=== PATIENT | male | born 1970 | race Caucasian/White ===

== ENCOUNTER → 2016-07-19 | Day surgery (SDC) | payer MEDICAID ==
[~2016-07-19] MED LIST: Dextrose 5%-Lactated Ringers 1,000 ML IV SCH; Glycopyrrolate 0.2 MG/ML 2 ML SYRINGE IVPUSH ONE; HYDROmorphone 0.5 MG/0.5 ML Syringe IM ONE; Midazolam 1 MG/ML 2 ML SDV ONE; Propofol 200 MG/20 ML SDV ONE; fentaNYL 100 MCG/2 ML SDV ONE
[2016-07-19 09:05] VITALS: BP 93/56
--- NOTE | 2016-07-29 10:39 | OR ---
DATE OF PROCEDURE: 07/19/2016 PREOPERATIVE DIAGNOSES: 1. Heartburn with associated probable gastroesophageal reflux disease. 2. Crampy mid and lower abdominal pain. POSTOPERATIVE DIAGNOSES: 1. Gastroesophageal reflux disease with a polypoid lesion at esophagogastric junction. 2. Mild antral gastritis. 3. Normal colonoscopic examination. OPERATIVE PROCEDURE: 1. Esophagogastroduodenoscopy with:. a. Biopsies of antrum for CLOtest. b. Biopsies of esophagogastric junction for histologic evaluation (13611). c. Polypectomy of lesion at esophagogastric junction (85908). 2. Flexible colonoscopy (28176). ANESTHESIA: IV sedation. INDICATION FOR PROCEDURE: This is a 46-year-old presenting with some epigastric pain and heartburn, whom we started on omeprazole 40 mg daily, roughly a month ago, and is having an improvement in the upper GI symptoms. He has, however, had problems with increasing mid and lower crampy abdominal pain. On questioning the patient and , this appeared to start more or less when he started the omeprazole. The plan is to proceed with upper and lower endoscopy with biopsies and/or polypectomy as indicated. Potential risks of the procedure including bleeding and perforation were discussed, and the patient wishes to proceed. DETAILS OF PROCEDURE: The patient was taken to the operating room and placed in a left lateral decubitus position. IV sedation was administered, after which the upper GI endoscope was passed orally through the length of the esophagus, and into the stomach with retroflexion view of the fundus, thereafter through the pyloric channel and into the proximal duodenum. Findings included normal hypopharynx, larynx, upper esophageal sphincter, and esophageal body. At the EG junction, there is a small hiatal hernia present. The patient had some upward extension of the gastroesophageal junction mucosal lining, suggestive of some possible Felder's esophagus. In addition to this, there is a polypoid lesion directly at the esophagogastric junction as well, this measuring around 4 mm in height. Within the stomach, the proximal stomach was unremarkable, apart from the small hiatal hernia. There was some mild redness in the antrum without erosions or ulcers, and the duodenum to the level of the junction of the 3rd and 4th portions was otherwise unremarkable. At this point, biopsies were obtained from the antrum and sent for CLOtest for H. pylori. Multiple biopsies then obtained from esophagogastric junction, sent for histologic evaluation, and finally the polypoid lesion at the EG junction was encircled at its base with a cautery snare and excised and sent as a separate specimen as well. Good hemostasis was noted at the polypectomy site, and no significant bleeding from the biopsy sites was seen. The gastroscope was withdrawn and the procedure then concluded. Attention was then taken to the colonoscopy. Digital rectal exam was performed and was unremarkable. Colonoscope was passed into the rectum with retroflexion revealing uncomplicated hemorrhoidal columns. The scope was eventually passed to the cecum. The prep was fairly good with there only being a small amount of scattered solid and liquid stool present. To that level, no abnormalities were noted. Specifically, there were no areas of diverticular disease, no areas of colitis, and no polyps or other signs of neoplasia. The scope was then withdrawn, the above findings reconfirmed, and the procedure then concluded. Plan at this point will be to switch the patient from omeprazole to Protonix, as it is possible that the patient's lower and mid abdominal cramping symptoms are related to the omeprazole, but he certainly does need to continue treatment of his gastroesophageal reflux disease. If the CLOtest is positive, he will be contacted and one of the standard anti-H pylori regimens initiated. Otherwise, we will see him back in 10 days to see how he is doing in terms of the lower abdominal pain. If that subsides with changing the PPI, then we would not pursue that further, and otherwise we will base management of the gastroesophageal reflux findings based on histologic evaluation of those specimens. Chris Tatum MD /[id number]
== END ==
LOC: JP.SDS 06:14
PROVIDERS: ATTEND Surgery
DX: K20.9 Esophagitis, unspecified (principal); K29.70 Gastritis, unspecified, without bleeding; K44.9 Diaphragmatic hernia without obstruction or gangrene; K21.9 Gastro-esophageal reflux disease without esophagitis; Z79.899 Other long term (current) drug therapy
CPT/HCPCS: 43239; 43251; 45378; 87081; J2250; J2704; J3010; 88305

== ENCOUNTER 2016-08-15 07:47 | Emergency (ER) | payer MEDICAID ==
[2016-08-15 08:11] VITALS: BP 139/83
--- NOTE | 2016-08-15 08:35 | EDM.PDOC ---
[id number] 4d ALL OVER MUSCLE PAIN Time Seen by Provider: 08/15/16 08:15 Source of Information: Reports: Patient History Limitations: Reports: No limitations - History of Present Illness INITIAL COMMENTS - FREE TEXT/NARRATIVE: 46-year-old male very anxious about his current health who for 2 months has been having intermittent abdominal pain, lower back pain radiating into the left groin and right flank pain. He had a complete workup a month ago for abdominal pain which was negative except for an endoscopy showed Felder's esophagus. He seemed to respond proton pump inhibitors but is having difficulty sleeping at night because of the pain and the anxiety. He is concerned it may be his gallbladder. He has seen a chiropractor without relief. No fevers or chills. He had a 20 pound weight loss over the past several months but admits he is not eating fatty foods anymore. No diarrhea, rashes, chest pain, shortness of breath. Onset: unknown/unsure Duration: Chronic (Several months) Location: Reports: abdomen, back, other (Left groin, testicles) Quality: Reports: Ache, Burning Severity: moderate Worsens with: Reports: Other (Seems worse when laying down especially on his left side) Associated Symptoms: Reports: malaise. Denies: chest pain, cough, fever/chills , headaches, nausea/vomiting, shortness of breath Lower Back Pain Score (Numeric/FACES): 5 - Related Data Allergies Allergy/AdvReac Type Severity Reaction Status Date / Time No Known Allergies Allergy Verified 08/15/16 07:59 Home Meds: Home Meds LORazepam [Ativan] 1 mg PO ASDIRECTED 07/19/16 [History] Pantoprazole Sodium [Protonix] 40 mg PO DAILY 08/15/16 [History] Past Medical History Gastrointestinal History: Reports: GERD Musculoskeletal History: Reports: Arthritis, Back pain, chronic Psychiatric History: Reports: Anxiety - Infectious Disease History Infectious Disease History: Reports: Chicken pox - Past Surgical History GI Surgical History: Reports: Appendectomy, Colonoscopy, EGD Musculoskeletal Surgical History: Reports: None Social & Family History - Tobacco Use Smoking Status *Q: Never Smoker Second Hand Smoke Exposure: No - Caffeine Use Caffeine Use: Reports: None - Alcohol Use Days Per Week of Alcohol Use: 1 Number of Drinks Per Day: 1 Total Drinks Per Week: 1 - Recreational Drug Use Recreational Drug Use: No ED ROS GENERAL - Review of Systems Review Of Systems: See Below Constitutional: Denies: fever, chills, malaise HEENT: Reports: No symptoms Respiratory: Reports: No Symptoms Cardiovascular: Reports: No symptoms GI/Abdominal: Reports: Abdominal pain. Denies: Diarrhea, Nausea, Vomiting : Reports: other (Left groin and testicular pain) Musculoskeletal: Reports: muscle pain (Especially in the back and pelvic area, left side) Neurological: Denies: Headache, Syncope, Weakness Psychiatric: Reports: Anxiety ED EXAM, GENERAL - Physical Exam Exam: See Below Exam Limited By: No limitations General Appearance: alert, anxious Eye Exam: bilateral eye: EOMI, normal inspection (No jaundice) Throat/Mouth: Other (Well-hydrated) Respiratory/Chest: no respiratory distress, lungs clear Cardiovascular: regular rate, rhythm GI/Abdominal: soft, tender (Reacts with tenderness to even light palpation of the upper and lower abdomen) (Male) Exam: No hernia (No obvious hernia was felt that he was so sensitive that he exam it was difficult to palpate the inguinal canal on the left side) Neurological: alert, oriented Psychiatric: anxious Skin Exam: Warm, Dry Course - Vital Signs Last Recorded V/S: Last Vital Signs Temp 94.6 F L 08/15/16 08:14 Pulse 100 08/15/16 08:14 Resp 20 08/15/16 08:14 BP 139/83 08/15/16 08:14 Pulse Ox 96 08/15/16 08:14 - Orders/Labs/Meds Labs: Laboratory Tests 08/15/16 08/15/16 08/15/16 Range/Units 08:39 08:39 08:57 WBC 8.6 (4.5-11.0) K/uL RBC 5.03 (4.30-5.90) M/uL Hgb 15.3 H (12.0-15.0) g/dL Hct 45.0 (40.0-54.0) % MCV 90 (80-98) fL MCH 30 (27-31) pg MCHC 34 (32-36) % Plt Count 279 (150-400) K/uL Neut % (Auto) 81 H (36-66) % Lymph % (Auto) 12 L (24-44) % [place] % (Auto) 6 (2-6) % Eos % (Auto) 1 L (2-4) % Baso % (Auto) 1 (0-1) % ESR 24 H (0-20) mm/hr Sodium 143 (140-148) mmol/L Potassium 3.8 (3.6-5.2) mmol/L Chloride 103 (100-108) mmol/L Carbon Dioxide 29 (21-32) mmol/L Anion Gap 10.8 (5.0-14.0) mmol/L BUN 18 (7-18) mg/dL Creatinine 1.3 (0.8-1.3) mg/dL Est Cr Clr Drug Dosing 83.96 mL/min Estimated GFR (MDRD) 59 L (>60) Glucose 100 (74-106) mg/dL Calcium 9.3 (8.5-10.1) mg/dL Total Bilirubin 0.7 (0.2-1.0) mg/dL AST 18 (15-37) U/L ALT 52 (12-78) U/L Alkaline Phosphatase 69 (46-116) U/L Creatine Kinase 182 (39-308) U/L C-Reactive Protein 0.06 (0.0-0.3) mg/dL Total Protein 8.1 (6.4-8.2) g/dL Albumin 4.3 (3.4-5.0) g/dL Globulin 3.8 H (2.3-3.5) g/dL Albumin/Globulin Ratio 1.1 L (1.2-2.2) Amylase 34 (25-115) U/L Lipase 153 (73-393) U/L Urine Color Yellow Urine Appearance Clear Urine pH 7.0 (4.5-8.0) Ur Specific [place] 1.010 (1.008-1.030) Urine Protein Negative (NEGATIVE) mg/dL Urine Glucose (UA) Normal (NEGATIVE) mg/dL Urine Ketones Negative (NEGATIVE) mg/dL Urine Occult Blood Negative (NEGATIVE) Urine Nitrite Negative (NEGAITVE) Urine Bilirubin Negative (NEGATIVE) Urine Urobilinogen Normal (NORMAL) mg/dL Ur Leukocyte Esterase Negative (NEGATIVE) Urine RBC Not seen (0-5) Urine WBC Not seen (0-5) Ur Epithelial Cells Not seen Amorphous Sediment Not seen Urine Bacteria Not seen Urine Mucus Not seen - Re-Assessments/Exams Free Text/Narrative Re-Assessment/Exam: 08/15/16 08:35 Amylase, lipase, CMP, CRP and sedimentation rate along with a CK and UA were obtained. 08/15/16 09:44 Labs are very reassuring, UA is normal. CRP is normal and sedimentation rate is 24. I discussed sitting the patient up with a surgical consultation or HIDA scan and he elected to try to increase his diet and see how things go and recheck next week if not improving or worsening. He is also going to try an anti-inflammatory at bedtime such as Naprosyn. He will return sooner if worsening. Departure - Departure Time of Disposition: 10:03 Disposition: Home, Self-Care 01 Condition: good Clinical Impression: Myalgia, Left groin pain Abdominal pain Qualifiers: Abdominal location: lower abdomen, unspecified Qualified Code(s): R10.30 - Lower abdominal pain, unspecified Instructions: Abdominal Pain, Adult, [id number] Referrals: Mark Morley MD [Primary Care Provider] - Forms: ED Department Discharge Care Plan Goals: Trying naproxen at bedtime, increase diet and activity as tolerated and recheck next week if not improving. Consider rechecking with surgery to discuss further tests on your gallbladder and rechecking your hernia exam. Return anytime sooner if worsening such as fever, increased pain or vomiting
== END 2016-08-15 10:03 | disposition home or self-care (01) ==
LOC: JP.ED 07:47
DX: M79.1 Myalgia (principal); R10.30 Lower abdominal pain, unspecified; K21.9 Gastro-esophageal reflux disease without esophagitis; M19.90 Unspecified osteoarthritis, unspecified site; F41.9 Anxiety disorder, unspecified; Z90.49 Acquired absence of other specified parts of digestive tract; Z79.899 Other long term (current) drug therapy
CPT/HCPCS: 36415; 80053; 81001; 82150; 82550; 83690; 85025; 85651; 86140; 99284

== ENCOUNTER 2018-01-11 08:16 | Emergency (ER) | payer MEDICAID ==
--- NOTE | 2018-01-11 09:17 | EDM.PDOC ---
ED HPI GENERAL MEDICAL PROBLEM - General Chief Complaint: General Stated Complaint: SOB/DIZZY/SWEATY Time Seen by Provider: 01/11/18 09:05 Source of Information: Reports: Patient, Old Records, RN History Limitations: Reports: No Limitations - History of Present Illness INITIAL COMMENTS - FREE TEXT/NARRATIVE: 47 yo male was seen here and transferred to [facility] for rectal bleeding and found there to have rectal CA that was surgically removed. He got out of the hospital last and starting in the middle of the night last night has had some heart burn and mild SOB. He took TUMS last night and an H2 sheyrl and the heart burn is less, but not the SOB. He has no personal hx of CAD, but his father has coronory dz. No nausea. He's had one BM since discharge that was not hard. He did have a hutchinson catheter when in the hospital. He was also noted to develop hypokalemia during that admission for which he was tx'd. Onset: Today Onset Date: 01/11/18 Onset Time: 02:00 Duration: Hour(s):, Improving Location: Reports: Chest Quality: Reports: Burning Severity: Mild (was worse last night) Improves with: Reports: Medication Worsens with: Reports: Other (dyspnea worse with exertion) Context: Reports: Other (Recent rectal surgery to remove a cancer.) Associated Symptoms: Reports: Shortness of Breath. 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 (see below) (See HPI) Epigastric Pain Score (Numeric/FACES): 5 - Related Data Allergies Allergy/AdvReac Type Severity Reaction Status Date / Time No Known Allergies Allergy Verified 01/11/18 08:42 Home Meds: Home Meds Famotidine [Pepcid] 20 mg PO ACLUNCH PRN 01/11/18 [History] Hydrocodone/Acetaminophen [Hydrocodon-Acetaminophen 5-325] 1 each PO Q4HR [History] Past Medical History Gastrointestinal History: Reports: GERD Musculoskeletal History: Reports: Arthritis, Back Pain, Chronic Psychiatric History: Reports: Anxiety Oncologic (Cancer) History: Reports: Colon Other Oncologic History: colon resection - Infectious Disease History Infectious Disease History: Reports: Chicken Pox - Past Surgical History GI Surgical History: Reports: Appendectomy, Colon, Colonoscopy, EGD Social & Family History - Tobacco Use Smoking Status *Q: Never Smoker - Caffeine Use Caffeine Use: Reports: Coffee Other Caffeine Use: one cup in am - Recreational Drug Use Recreational Drug Use: No ED ROS GENERAL - Review of Systems Review Of Systems: See Below Constitutional: Reports: No Symptoms HEENT: Reports: No Symptoms Respiratory: Reports: Shortness of Breath. Denies: Wheezing, Pleuritic Chest Pain, Cough, Sputum, Hemoptysis Cardiovascular: Reports: Other ("heart burn") Endocrine: Reports: No Symptoms GI/Abdominal: Reports: No Symptoms : Reports: No Symptoms Musculoskeletal: Reports: No Symptoms Skin: Reports: No Symptoms Neurological: Reports: No Symptoms ED EXAM, GENERAL - Physical Exam Exam: See Below Exam Limited By: No Limitations General Appearance: Alert, WD/WN, No Apparent Distress Eye Exam: Bilateral Eye: Other (conjunctival pallor) Ears: Normal External Exam, Normal Canal, Hearing Grossly Normal Ear Exam: Bilateral Ear: Auricle Normal, Canal Normal Nose: Normal Inspection, Normal Mucosa, No Blood Throat/Mouth: Normal Inspection, Normal Lips, Normal Oropharynx, Normal Voice, No Airway Compromise Head: Atraumatic, Normocephalic Neck: Normal Inspection Respiratory/Chest: No Respiratory Distress, Lungs Clear, Normal Breath Sounds, No Accessory Muscle Use Cardiovascular: Regular Rate, Rhythm, No Edema GI/Abdominal: Other (large vertical surgical scar present, no sign of infection. ) Back Exam: Normal Inspection. No: CVA Tenderness (R), CVA Tenderness (L) Extremities: Normal Inspection, Normal Range of Motion, Non-Tender, No Pedal Edema Neurological: Alert, Oriented, CN II-XII Intact, Normal Cognition, No Motor/ Sensory Deficits Psychiatric: Normal Affect, Normal Mood Skin Exam: Warm, Dry, Intact, Normal Color, No Rash Lymphatic: No Adenopathy EKG INTERPRETATION EKG Date: 01/11/18 Time: 09:20 Rhythm: NSR Rate (Beats/Min): 89 Daniel: Normal P-Wave: Present QRS: Normal ST-T: Normal QT: Normal Comparison: NA - No Prior EKG EKG Interpretation Comments: abnormal R wave progression anterior leads. Course - Vital Signs Text/Narrative:: Feeling a lot better after 2.5 liters of IV fluids, 0.5 liters to go. Heartburn is all gone. Last Recorded V/S: Last Vital Signs Temp 36.2 C 01/11/18 08:34 Pulse 82 01/11/18 15:00 Resp 16 01/11/18 15:00 BP 137/84 01/11/18 15:00 Pulse Ox 96 01/11/18 15:00 Orthostatic Blood Pressure [ 147/83 Standing] Orthostatic Blood Pressure [ 126/81 Sitting] Orthostatic Blood Pressure [ 116/79 Supine] - Orders/Labs/Meds Orders: Active Orders 24 hr Category Date Time Status Cardiac Monitoring [RC] .As Directed Care 01/11/18 09:05 Active EKG Documentation Completion [RC] ASDIRECTED Care 01/11/18 09:16 Active Orthostatic Vital Signs [RC] ASDIRECTED Care 01/11/18 09:05 Active Orthostatic Vital Signs [RC] ASDIRECTED Care 01/11/18 13:15 Active Ang Chest [CT] Stat Exams 01/11/18 10:10 Taken UA W/MICROSCOPIC [URIN] Stat Lab 01/11/18 10:40 Ordered Iopamidol [Isovue-370 (76%)] Med 01/11/18 10:30 Active 100 ml IV . DIRECTED Lactated Ringers [Ringers, Lactated] 1,000 ml Med 01/11/18 10:15 Active IV ASDIRECTED Lactated Ringers [Ringers, Lactated] 1,000 ml Med 01/11/18 13:30 Active IV ASDIRECTED Lactated Ringers [Ringers, Lactated] 1,000 ml Med 01/11/18 14:15 Active IV BOLUS Sodium Chloride 0.9% [Saline Flush] Med 01/11/18 10:24 Active 10 ml FLUSH ONETIME PRN EKG 12 Lead [EK] Routine Ther 01/11/18 09:16 Ordered Medication Orders Lactated Ringer's (Ringers, Lactated) 1,000 mls @ 1,000 mls/hr IV ASDIRECTED [facility] Last Admin: 01/11/18 11:27 Dose: 500 mls/hr Lactated Ringer's (Ringers, Lactated) 1,000 mls @ 1,000 mls/hr IV ASDIRECTED [facility] Last Admin: 01/11/18 14:06 Dose: 1,000 mls/hr Admin: 01/11/18 14:04 Dose: 1,000 mls/hr Lactated Ringer's (Ringers, Lactated) 1,000 mls @ 1,000 mls/hr IV BOLUS [facility] [place] Last Admin: 01/11/18 14:50 Dose: 1,000 mls/hr Iopamidol (Isovue-370 (76%)) 100 ml IV . DIRECTED [facility] Last Admin: 01/11/18 11:22 Dose: 100 ml Sodium Chloride (Saline Flush) 10 ml FLUSH ONETIME PRN PRN Reason: PER RADIOLOGY PROTOCOL Last Admin: 01/11/18 11:23 Dose: 10 ml Labs: Laboratory Tests 01/11/18 01/11/18 01/11/18 Range/Units 09:15 09:15 09:15 WBC 14.4 H (4.5-11.0) K/uL RBC 4.30 (4.30-5.90) M/uL Hgb 12.1 D (12.0-15.0) g/dL Hct 37.5 L (40.0-54.0) % MCV 87 (80-98) fL MCH 28 (27-31) pg MCHC 32 (32-36) % Plt Count 639 H (150-400) K/uL D-Dimer, Quantitative 3180 H (0.0-400.0) ng/mL Sodium 135 L (140-148) mmol/L Potassium 4.2 (3.6-5.2) mmol/L Chloride 99 L (100-108) mmol/L Carbon Dioxide 26 (21-32) mmol/L Anion Gap 14.2 H (5.0-14.0) mmol/L BUN 18 (7-18) mg/dL Creatinine 1.2 (0.8-1.3) mg/dL Est Cr Clr Drug Dosing 89.98 mL/min Estimated GFR (MDRD) > 60 (>60) Glucose 147 H (74-106) mg/dL Calcium 9.2 (8.5-10.1) mg/dL Troponin I < 0.017 (0.000-0.056) ng/mL C-Reactive Protein (0.0-0.3) mg/dL Urine Color Urine Appearance Urine pH (4.5-8.0) Ur Specific [place] (1.008-1.030) Urine Protein (NEGATIVE) mg/dL Urine Glucose (UA) (NEGATIVE) mg/dL Urine Ketones (NEGATIVE) mg/dL Urine Occult Blood (NEGATIVE) Urine Nitrite (NEGAITVE) Urine Bilirubin (NEGATIVE) Urine Urobilinogen (NORMAL) mg/dL Ur Leukocyte Esterase (NEGATIVE) Urine RBC (0-5) Urine WBC (0-5) Ur Epithelial Cells Amorphous Sediment Urine Bacteria Urine Mucus 01/11/18 01/11/18 01/11/18 Range/Units 09:49 10:40 15:14 WBC (4.5-11.0) K/uL RBC (4.30-5.90) M/uL Hgb 11.1 L (12.0-15.0) g/dL Hct (40.0-54.0) % MCV (80-98) fL MCH (27-31) pg MCHC (32-36) % Plt Count (150-400) K/uL D-Dimer, Quantitative (0.0-400.0) ng/mL Sodium (140-148) mmol/L Potassium (3.6-5.2) mmol/L Chloride (100-108) mmol/L Carbon Dioxide (21-32) mmol/L Anion Gap (5.0-14.0) mmol/L BUN (7-18) mg/dL Creatinine (0.8-1.3) mg/dL Est Cr Clr Drug Dosing mL/min Estimated GFR (MDRD) (>60) Glucose (74-106) mg/dL Calcium (8.5-10.1) mg/dL Troponin I (0.000-0.056) ng/mL C-Reactive Protein 1.17 H (0.0-0.3) mg/dL Urine Color Yellow Urine Appearance Clear Urine pH 6.0 (4.5-8.0) Ur Specific [place] 1.010 (1.008-1.030) Urine Protein Negative (NEGATIVE) mg/dL Urine Glucose (UA) Normal (NEGATIVE) mg/dL Urine Ketones Negative (NEGATIVE) mg/dL Urine Occult Blood Negative (NEGATIVE) Urine Nitrite Negative (NEGAITVE) Urine Bilirubin Negative (NEGATIVE) Urine Urobilinogen Normal (NORMAL) mg/dL Ur Leukocyte Esterase Negative (NEGATIVE) Urine RBC 0-5 (0-5) Urine WBC Not seen (0-5) Ur Epithelial Cells Not seen Amorphous Sediment Not seen Urine Bacteria Not seen Urine Mucus Not seen Meds: Medications Generic Name Dose Route Start Last Admin Trade Name Freq PRN Reason Stop Dose Admin Lactated Ringer's 1,000 mls @ 1,000 mls/hr 01/11/18 10:15 01/11/18 11:27 Ringers, Lactated IV 500 mls/hr ASDIRECTED LEONA Administration Lactated Ringer's 1,000 mls @ 1,000 mls/hr 01/11/18 13:30 01/11/18 14:06 Ringers, Lactated IV 1,000 mls/hr ASDIRECTED LEONA Administration Lactated Ringer's 1,000 mls @ 1,000 mls/hr 01/11/18 14:15 01/11/18 14:50 Ringers, Lactated IV 1,000 mls/hr BOLUS LEONA Administration Iopamidol 100 ml 01/11/18 10:30 01/11/18 11:22 Isovue-370 (76%) IV 100 ml . DIRECTED LEONA Administration Sodium Chloride 10 ml 01/11/18 10:24 01/11/18 11:23 Saline Flush FLUSH 10 ml ONETIME PRN Administration PER RADIOLOGY PROTOCOL Discontinued Medications Generic Name Dose Route Start Last Admin Trade Name Freq PRN Reason Stop Dose Admin Sodium Chloride 100 mls @ 3 mls/sec 01/11/18 10:24 01/11/18 11:23 Normal Saline IV 01/11/18 10:25 3 mls/sec ONETIME ONE Administration Metoclopramide HCl 10 mg 01/11/18 13:16 01/11/18 13:35 Reglan IVPUSH 01/11/18 13:17 10 mg ONETIME ONE Administration - Radiology Interpretation Free Text/Narrative:: No PE on CT angio of chest. CT Results Date: 01/11/18 CT Results Time: 12:00 Departure - Departure Time of Disposition: 15:55 Disposition: Home, Self-Care 01 Condition: Fair Clinical Impression: Ileus, Mild dehydration - Discharge Information *PRESCRIPTION DRUG MONITORING PROGRAM REVIEWED*: Not Applicable *COPY OF PRESCRIPTION DRUG MONITORING REPORT IN PATIENT VIKAS: Not Applicable Instructions: Ileus Referrals: Mark Morley MD [Primary Care Provider] - Forms: ED Department Discharge Additional Instructions: Clear liquid diet today, small amounts at a time. Walk around to get your bowels activated. Advance your diet slowly as tolerated. Recheck as needed. - My Orders Last 24 Hours: My Active Orders 01/11/18 09:05 Cardiac Monitoring [RC] .As Directed Orthostatic Vital Signs [RC] ASDIRECTED 01/11/18 09:16 EKG Documentation Completion [RC] ASDIRECTED EKG 12 Lead [EK] Routine 01/11/18 10:10 Ang Chest [CT] Stat 01/11/18 10:15 Lactated Ringers [Ringers, Lactated] 1,000 ml IV ASDIRECTED 01/11/18 10:24 Sodium Chloride 0.9% [Saline Flush] 10 ml FLUSH ONETIME PRN 01/11/18 10:30 Iopamidol [Isovue-370 (76%)] 100 ml IV . DIRECTED 01/11/18 10:40 UA W/MICROSCOPIC [URIN] Stat 01/11/18 13:15 Orthostatic Vital Signs [RC] ASDIRECTED 01/11/18 13:30 Lactated Ringers [Ringers, Lactated] 1,000 ml IV ASDIRECTED 01/11/18 14:15 Lactated Ringers [Ringers, Lactated] 1,000 ml IV BOLUS - Assessment/Plan Last 24 Hours: My Active Orders 01/11/18 09:05 Cardiac Monitoring [RC] .As Directed Orthostatic Vital Signs [RC] ASDIRECTED 01/11/18 09:16 EKG Documentation Completion [RC] ASDIRECTED EKG 12 Lead [EK] Routine 01/11/18 10:10 Ang Chest [CT] Stat 01/11/18 10:15 Lactated Ringers [Ringers, Lactated] 1,000 ml IV ASDIRECTED 01/11/18 10:24 Sodium Chloride 0.9% [Saline Flush] 10 ml FLUSH ONETIME PRN 01/11/18 10:30 Iopamidol [Isovue-370 (76%)] 100 ml IV . DIRECTED 01/11/18 10:40 UA W/MICROSCOPIC [URIN] Stat 01/11/18 13:15 Orthostatic Vital Signs [RC] ASDIRECTED 01/11/18 13:30 Lactated Ringers [Ringers, Lactated] 1,000 ml IV ASDIRECTED 01/11/18 14:15 Lactated Ringers [Ringers, Lactated] 1,000 ml IV BOLUS
[2018-01-11] MEDS ORDERED: Lactated Ringers 1,000 ML IV SCH ×2 (10:15→14:15)
[2018-01-11] MEDS ORDERED: Sodium Chloride 0.9% 10 ML Syringe FLUSH PRN (10:24)
[2018-01-11] MEDS ORDERED: Sodium Chloride 0.9% 100 ML IV ONE (10:24)
[2018-01-11] MEDS ORDERED: Iopamidol 755 Mg/ML 100 ML Bottle IV SCH (10:30)
[2018-01-11] MEDS ORDERED: Metoclopramide 10 MG/2 ML SDV IVPUSH ONE (13:16)
[2018-01-11] MEDS: Lactated Ringers 1,000 ML IV SCH ×2 (14:04→14:06)
[2018-01-11 15:34] VITALS: BP 144/83
== END 2018-01-11 15:55 | disposition home or self-care (01) ==
LOC: JP.ED 08:16
DX: K56.7 Ileus, unspecified (principal); E86.0 Dehydration
CPT/HCPCS: 36415; 71275; 80048; 81001; 84484; 85018; 85027; 85379; 86140; 93005; 96361; 96374; 99285; J2765; J7030; J7050; J7120; Q9967

== ENCOUNTER 2018-02-25 22:35 | Emergency (ER) | payer MEDICAID ==
[2018-02-25] MEDS ORDERED: Lactated Ringers 1,000 ML IV SCH (23:45)
--- NOTE | 2018-02-25 23:47 | EDM.PDOC ---
ED HPI GENERAL MEDICAL PROBLEM - General Chief Complaint: Fever Stated Complaint: FEVER Time Seen by Provider: 02/25/18 23:28 Source of Information: Reports: Patient, Family, RN Notes Reviewed History Limitations: Reports: No Limitations - History of Present Illness INITIAL COMMENTS - FREE TEXT/NARRATIVE: 47-year-old gentleman presents to the emergency department today with complaint of fever he has a known history of stage III colon cancer status post resection currently on chemotherapy, last chemotherapy dose was today fever was up to 100.4, called discussed case with oncology recommend report emergency department for further evaluation. He has no other symptoms - Related Data Allergies Allergy/AdvReac Type Severity Reaction Status Date / Time No Known Allergies Allergy Verified 02/25/18 23:20 Home Meds: Home Meds Ciprofloxacin HCl [Cipro] 500 mg PO ASDIRECTED PRN 02/25/18 [History] Diphenhyd/Lidocaine/Nystatin [First-Bxn Mouthwash] 237 ml MM ASDIRECTED [History] Ondansetron [Ondansetron Odt] 4 mg PO ASDIRECTED 02/25/18 [History] Prochlorperazine [Compazine] 10 mg PO Q6H PRN 02/25/18 [History] Past Medical History Gastrointestinal History: Reports: GERD Musculoskeletal History: Reports: Arthritis, Back Pain, Chronic Psychiatric History: Reports: Anxiety Oncologic (Cancer) History: Reports: Colon Other Oncologic History: colon resection January 02 2018 - Infectious Disease History Infectious Disease History: Reports: Chicken Pox - Past Surgical History GI Surgical History: Reports: Appendectomy, Colon, Colonoscopy, EGD Social & Family History - Tobacco Use Smoking Status *Q: Never Smoker - Caffeine Use Caffeine Use: Reports: Coffee Other Caffeine Use: one cup in am - Recreational Drug Use Recreational Drug Use: No ED ROS GENERAL - Review of Systems Review Of Systems: See Below Constitutional: Reports: Fever HEENT: Reports: No Symptoms Respiratory: Reports: No Symptoms Cardiovascular: Reports: No Symptoms GI/Abdominal: Reports: No Symptoms : Reports: No Symptoms Musculoskeletal: Reports: No Symptoms Skin: Reports: No Symptoms ED EXAM, GENERAL - Physical Exam Exam: See Below Free Text/Narrative:: General: Male, not in any distress, alert and oriented x3 HEENT: head is atraumatic normocephalic, eyes pupils equal round reactive to light, sclera clear no conjunctivitis appreciated. Ears tympanic membranes clear and garrett landmarks and light reflex are present bilaterally canals are clear. Nose no septal deviation, nares are clear, no blood present. Mouth mucosa is moist and pink no erythema or exudate noted in soft palate, tongue is midline uvula is midline, dentition is intact. Neck: Supple no thyromegaly no tracheal deviation. Nodes: Cervical nodes subclavicular nodes nontender no palpable lymphadenopathy noted. Lungs: clear to auscultation bilaterally with symmetrical respirations, no adventitious noise appreciated. CV: Regular rate and rhythm S1 and S2 appreciated no murmurs rubs or gallops noted. Abdomen: Soft, nontender, no palpable masses or organomegaly appreciated, no distention no guarding bowel sounds are present, midline laparotomy scar clean dry and intact. Neuro: Cranial nerves II through XII grossly intact Skin: Warm and dry, intact Extremities: No lower extremity edema appreciated, Course - Vital Signs Last Recorded V/S: Last Vital Signs Temp 99.1 F 02/26/18 00:13 Pulse 102 H 02/26/18 00:13 Resp 16 02/26/18 00:13 BP 117/74 02/26/18 00:13 Pulse Ox 96 02/26/18 00:13 - Orders/Labs/Meds Orders: Active Orders 24 hr Category Date Time Status Vital Signs [RC] Q1H Care 02/25/18 23:36 Active Chest 2V [CR] Urgent Exams 02/26/18 00:05 Taken CULTURE BLOOD [BC] Urgent Lab 02/25/18 23:36 Ordered CULTURE BLOOD [BC] Urgent Lab 02/25/18 23:36 Ordered Ciprofloxacin [Ciprofloxacin HCl] Med 02/26/18 02:30 Once 500 mg PO ONETIME ONE Lactated Ringers [Ringers, Lactated] 1,000 ml Med 02/25/18 23:45 Active IV ASDIRECTED Blood Culture x2 Reflex Set [OM.PC] Urgent Oth 02/25/18 23:36 Ordered Medication Orders Ciprofloxacin (Ciprofloxacin Hcl) 500 mg PO ONETIME ONE Stop: 02/26/18 02:31 Lactated Ringer's (Ringers, Lactated) 1,000 mls @ 125 mls/hr IV ASDIRECTED LEONA Last Admin: 02/26/18 00:10 Dose: 125 mls/hr Labs: Laboratory Tests 02/25/18 02/25/1818 Range/Units 23:36 23:36 23:36 WBC 8.1 (4.5-11.0) K/uL RBC 4.39 (4.30-5.90) M/uL Hgb 12.5 (12.0-15.0) g/dL Hct 37.5 L (40.0-54.0) % MCV 85 (80-98) fL MCH 29 (27-31) pg MCHC 33 (32-36) % Plt Count 192 (150-400) K/uL Neut % (Auto) 91 H (36-66) % Lymph % (Auto) 2 L (24-44) % [place] % (Auto) 6 (2-6) % Eos % (Auto) 1 L (2-4) % Baso % (Auto) 0 (0-1) % Sodium 137 L (140-148) mmol/L Potassium 4.1 (3.6-5.2) mmol/L Chloride 100 (100-108) mmol/L Carbon Dioxide 26 (21-32) mmol/L Anion Gap 15.1 H (5.0-14.0) mmol/L BUN 15 (7-18) mg/dL Creatinine 1.3 (0.8-1.3) mg/dL Est Cr Clr Drug Dosing 83.06 mL/min Estimated GFR (MDRD) 59 L (>60) Glucose 122 H (74-106) mg/dL Lactic Acid 1.8 (0.4-2.0) mmol/L Calcium 9.0 (8.5-10.1) mg/dL Total Bilirubin 0.5 D (0.2-1.0) mg/dL AST 16 (15-37) U/L ALT 26 (12-78) U/L Alkaline Phosphatase 73 (46-116) U/L C-Reactive Protein 0.45 H (0.0-0.3) mg/dL Total Protein 7.3 (6.4-8.2) g/dL Albumin 3.6 (3.4-5.0) g/dL Globulin 3.7 H (2.3-3.5) g/dL Albumin/Globulin Ratio 1.0 L (1.2-2.2) Urine Color Urine Appearance Urine pH (4.5-8.0) Ur Specific [place] (1.008-1.030) Urine Protein (NEGATIVE) mg/dL Urine Glucose (UA) (NEGATIVE) mg/dL Urine Ketones (NEGATIVE) mg/dL Urine Occult Blood (NEGATIVE) Urine Nitrite (NEGAITVE) Urine Bilirubin (NEGATIVE) Urine Urobilinogen (NORMAL) mg/dL Ur Leukocyte Esterase (NEGATIVE) Urine RBC (0-5) Urine WBC (0-5) Ur Epithelial Cells Amorphous Sediment Urine Bacteria Urine Mucus 02/26/18 Range/Units 01:21 WBC (4.5-11.0) K/uL RBC (4.30-5.90) M/uL Hgb (12.0-15.0) g/dL Hct (40.0-54.0) % MCV (80-98) fL MCH (27-31) pg MCHC (32-36) % Plt Count (150-400) K/uL Neut % (Auto) (36-66) % Lymph % (Auto) (24-44) % [place] % (Auto) (2-6) % Eos % (Auto) (2-4) % Baso % (Auto) (0-1) % Sodium (140-148) mmol/L Potassium (3.6-5.2) mmol/L Chloride (100-108) mmol/L Carbon Dioxide (21-32) mmol/L Anion Gap (5.0-14.0) mmol/L BUN (7-18) mg/dL Creatinine (0.8-1.3) mg/dL Est Cr Clr Drug Dosing mL/min Estimated GFR (MDRD) (>60) Glucose (74-106) mg/dL Lactic Acid (0.4-2.0) mmol/L Calcium (8.5-10.1) mg/dL Total Bilirubin (0.2-1.0) mg/dL AST (15-37) U/L ALT (12-78) U/L Alkaline Phosphatase (46-116) U/L C-Reactive Protein (0.0-0.3) mg/dL Total Protein (6.4-8.2) g/dL Albumin (3.4-5.0) g/dL Globulin (2.3-3.5) g/dL Albumin/Globulin Ratio (1.2-2.2) Urine Color [place] Urine Appearance Clear Urine pH 6.0 (4.5-8.0) Ur Specific [place] 1.015 (1.008-1.030) Urine Protein Trace (NEGATIVE) mg/dL Urine Glucose (UA) Normal (NEGATIVE) mg/dL Urine Ketones Negative (NEGATIVE) mg/dL Urine Occult Blood Negative (NEGATIVE) Urine Nitrite Negative (NEGAITVE) Urine Bilirubin Negative (NEGATIVE) Urine Urobilinogen Normal (NORMAL) mg/dL Ur Leukocyte Esterase Negative (NEGATIVE) Urine RBC 0-5 (0-5) Urine WBC 0-5 (0-5) Ur Epithelial Cells Not seen Amorphous Sediment Few Urine Bacteria Not seen Urine Mucus Not seen Meds: Medications Generic Name Dose Route Start Last Admin Trade Name Freq PRN Reason Stop Dose Admin Ciprofloxacin 500 mg 02/26/18 02:30 Ciprofloxacin Hcl PO 02/26/18 02:31 ONETIME ONE Lactated Ringer's 1,000 mls @ 125 mls/hr 02/25/18 23:45 02/26/18 00:10 Ringers, Lactated IV 125 mls/hr ASDIRECTED LEONA Administration Departure - Departure Time of Disposition: 02:32 Disposition: Home, Self-Care 01 Condition: Fair Clinical Impression: Fever Qualifiers: Fever type: unspecified Qualified Code(s): R50.9 - Fever, unspecified - Discharge Information Referrals: Mark Morley MD [Primary Care Provider] - Forms: ED Department Discharge Additional Instructions: Start ciprofloxacin 500 mg by mouth twice a day please contact your oncologist in the morning for further evaluation - My Orders Last 24 Hours: My Active Orders 02/25/18 23:36 Vital Signs [RC] Q1H CULTURE BLOOD [BC] Urgent CULTURE BLOOD [BC] Urgent Blood Culture x2 Reflex Set [OM.PC] Urgent 02/25/18 23:45 Lactated Ringers [Ringers, Lactated] 1,000 ml IV ASDIRECTED 02/26/18 00:05 Chest 2V [CR] Urgent 02/26/18 02:30 Ciprofloxacin [Ciprofloxacin HCl] 500 mg PO ONETIME ONE - Assessment/Plan Last 24 Hours: My Active Orders 02/25/18 23:36 Vital Signs [RC] Q1H CULTURE BLOOD [BC] Urgent CULTURE BLOOD [BC] Urgent Blood Culture x2 Reflex Set [OM.PC] Urgent 02/25/18 23:45 Lactated Ringers [Ringers, Lactated] 1,000 ml IV ASDIRECTED 02/26/18 00:05 Chest 2V [CR] Urgent 02/26/18 02:30 Ciprofloxacin [Ciprofloxacin HCl] 500 mg PO ONETIME ONE Plan: Assessment Acuity = acute Site and laterality = fever complicated in a patient on chemotherapy for colon cancer stage III Etiology = unclear etiology Manifestations = none Location of injury = Home Lab values =CBC, CMP, lactic acid, CRP all unremarkable urinalysis does not reveal a source nor does chest x-ray official read radiology is pending Plan Attempted to contact oncology on-call unfortunately unavailable at this time felt he was low risk elected to start ciprofloxacin 500 mg by mouth twice a day which he has a prescription for they will contact oncology in the morning for further evaluation This note was dictated using [employer] voice recognition software please call with any questions on syntax or grammar.
[2018-02-26] MEDS ORDERED: Ciprofloxacin 500 MG Tab PO ONE (02:30)
[2018-02-26 02:44] VITALS: BP 114/75
--- NOTE | 2018-02-26 09:31 | CR ---
CHEST: 2 view CLINICAL HISTORY:Fever COMPARISON:07/17/2016 FINDINGS: There is less than optimal inspiration. There is a left jugular catheter. Tip is in the br achycephalic vein. Heart size and pulmonary vascularity are normal. There are atherosclerotic changes in the aorta. No infiltrates are seen. There is some gaseous bowel distention. Impression: Limited study Lung ortega are clear. Left jugular catheter in good position Bowel distention
== END 2018-02-26 02:42 | disposition home or self-care (01) ==
LOC: JP.ED 22:35
DX: R50.9 Fever, unspecified (principal); C18.9 Malignant neoplasm of colon, unspecified; Z79.899 Other long term (current) drug therapy
CPT/HCPCS: 36415; 71046; 80053; 81001; 83605; 85025; 86140; 96360; 96361; 99284; A9270; J7120

== ENCOUNTER 2020-04-03 17:46 | Emergency (ER) | payer MEDICAID ==
[2020-04-03 18:03] VITALS: BP 175/100; PULSE 103
[2020-04-03] MEDS ORDERED: Lidocaine 1% 20 ML MDV INJECT ONE (20:05)
[2020-04-03] MEDS ORDERED: Bacitracin Oint 1 GM U/D Packet TOP ONE (20:06)
[2020-04-03] MEDS ORDERED: ceFAZolin 1 GM Vial IM ONE (20:53)
[2020-04-03] MEDS ORDERED: Diphtheria,Pertussis(Acell),Tetanus Vaccine 0.5 ML Syringe IM ONE (20:54)
--- NOTE | 2020-04-03 21:06 | EDM.PDOC ---
ED HPI GENERAL MEDICAL PROBLEM - General Chief Complaint: Laceration Stated Complaint: CUT LEFT PINKY Time Seen by Provider: 04/03/20 20:59 Source of Information: Reports: Patient History Limitations: Reports: No Limitations - History of Present Illness INITIAL COMMENTS - FREE TEXT/NARRATIVE: pt arrived with a 4 inch laceration on the vance aspect of his small finger. He was coming out of a deer stand and he slipped and caught his finger on a ladder. He has sensation at the tip and he has motion of the finger. He is not current with his tetanus. Onset: Today, Sudden Duration: Hour(s): Location: Reports: Upper Extremity, Left Associated Symptoms: Reports: No Other Symptoms Left Finger-Little Pain Score (Numeric/FACES): 5 - Related Data Allergies Allergy/AdvReac Type Severity Reaction Status Date / Time No Known Allergies Allergy Verified 02/25/18 23:20 Home Meds: Home Meds Ondansetron [Ondansetron Odt] 4 mg PO ASDIRECTED 02/25/18 [History] Prochlorperazine [Compazine] 10 mg PO Q6H PRN 02/25/18 [History] Past Medical History Respiratory History: Reports: Other (See Below) Other Respiratory History: cancer mets from colon Gastrointestinal History: Reports: GERD Musculoskeletal History: Reports: Arthritis, Back Pain, Chronic Psychiatric History: Reports: Anxiety Oncologic (Cancer) History: Reports: Colon Other Oncologic History: colon resection January 02 2018 - Infectious Disease History Infectious Disease History: Reports: Chicken Pox - Past Surgical History GI Surgical History: Reports: Appendectomy, Colon, Colonoscopy, EGD Social & Family History - Tobacco Use Tobacco Use Status *Q: Never Tobacco User - Caffeine Use Caffeine Use: Reports: Coffee Other Caffeine Use: one cup in am - Recreational Drug Use Recreational Drug Use: No ED ROS GENERAL - Review of Systems Review Of Systems: See Below Constitutional: Reports: No Symptoms HEENT: Reports: No Symptoms Respiratory: Reports: No Symptoms Cardiovascular: Reports: No Symptoms Endocrine: Reports: No Symptoms GI/Abdominal: Reports: No Symptoms : Reports: No Symptoms Musculoskeletal: Reports: Other (laceration on the vance aspect of the small finger about 4 inches in length. ) ED EXAM, SKIN/RASH Exam: See Below Text/Narrative:: pt was coming out odf a deer stand ladder and caught the vance aspect of the small finger on the ladder. He has a 4 inch laceration on the vance aspect. Exam Limited By: No Limitations General Appearance: Alert, Anxious, Moderate Distress Ears: Normal TMs Nose: Normal Inspection Throat/Mouth: Normal Inspection Head: Atraumatic Neck: Normal Inspection Respiratory/Chest: No Respiratory Distress Cardiovascular: Regular Rate, Rhythm GI/Abdominal: Soft, Non-Tender (Male) Exam: Deferred Rectal (Males) Exam: Deferred Extremities: Other (pt has a flap type laceration on the vance aspect of the left small finger. He has normal sensation at he tip of the finger and he has a small jamie in the tendon. He is able to flex the finger with no difficulty. It appears only the superficial fibers were cut on the tendon. This does not affect the motion. ) Neurological: Alert, Oriented, Normal Cognition Course - Vital Signs Last Recorded V/S: Last Vital Signs Temp 35.2 C L 04/03/20 17:59 Pulse 103 H 04/03/20 17:59 Resp 16 04/03/20 17:59 BP 175/100 H 04/03/20 17:59 Pulse Ox 97 04/03/20 17:59 - Orders/Labs/Meds Orders: Active Orders 24 hr Category Date Time Status Vaccines to be Administered [RC] PER UNIT ROUTINE Care 04/03/20 20:54 Active Meds: Medications Discontinued Medications Generic Name Dose Route Start Last Admin Trade Name Marissa PRN Reason Stop Dose Admin Bacitracin 1 dose 04/03/20 20:06 04/03/20 20:12 Bacitracin Oint 1 Gm TOP 04/03/20 20:07 1 dose ONETIME ONE Administration Cefazolin Sodium 1 gm 04/03/20 20:53 Ancef IM 04/03/20 20:54 ONETIME ONE Diphtheria/Tetanus/Acell Pertussis 0.5 ml 04/03/20 20:54 Boostrix IM 04/03/20 20:55 .ONCE ONE Lidocaine HCl 20 ml 04/03/20 20:05 04/03/20 20:12 Xylocaine 1% INJECT 04/03/20 20:06 20 ml ONETIME ONE Administration - Re-Assessments/Exams Free Text/Narrative Re-Assessment/Exam: 04/03/20 21:06 The area was cleansed well and infiltrated with lidocaine. The tendon was inspected and only a few fibers were lacerated. He was given a tdap and 1 gm of ancef im. The wound was brought together with 5-0 chromic and 5-0 prolene. The flap did tack down nicely but some of the edges did look traumatized. The wound was dressed with bacatracin and the finger was splinted. Departure - Departure Time of Disposition: 21:09 Disposition: Home, Self-Care 01 Condition: Fair Clinical Impression: Laceration - Discharge Information Referrals: Mark Morley MD [Primary Care Provider] - Care Plan Goals: leave present dressing on until tomorrow afternoon. Pt shpould see Dr Davidson tomorrow to get his opinion on the tendon issue, keflex 500mg tid for 7 days, norco 5/325 q6h prn foe pain. Sepsis Event Note (ED) - Evaluation Sepsis Screening Result: No Definite Risk - Focused Exam Vital Signs: Vital Signs Temp Pulse Resp BP Pulse Ox 04/03/20 17:59 35.2 C L 103 H 16 175/100 H 97 - My Orders Last 24 Hours: My Active Orders 04/03/20 20:54 Vaccines to be Administered [RC] PER UNIT ROUTINE - Assessment/Plan Last 24 Hours: My Active Orders 04/03/20 20:54 Vaccines to be Administered [RC] PER UNIT ROUTINE
== END 2020-04-03 21:43 | disposition home or self-care (01) ==
LOC: JP.ED 17:46
DX: S61.217A Laceration without foreign body of left little finger without damage to nail, initial encounter (principal); Z23 Encounter for immunization; W23.0XXA Caught, crushed, jammed, or pinched between moving objects, initial encounter
CPT/HCPCS: 12004; 12044; 90471; 90715; 96372; 99282; J0690; J2001

== ENCOUNTER 2020-04-15 09:48 | Emergency (ER) | payer MEDICAID ==
--- NOTE | 2020-04-15 10:41 | EDM.PDOC ---
ED HPI GENERAL MEDICAL PROBLEM - General Chief Complaint: Fever Stated Complaint: cough, low grade fever Time Seen by Provider: 04/15/20 10:25 Source of Information: Reports: Patient, RN History Limitations: Reports: Other (incomplete records) - History of Present Illness INITIAL COMMENTS - FREE TEXT/NARRATIVE: 50 yo male had a lobectomy for CA this past Friday at [facility] in [place]. He was discharged on from there and starting Friday developed a cough with some productivity and a low grade fever intermittently to around 100F. He is getting less and less SOB with each passing day. He is doing respiratory exercises at home as directed. Here now with his after they called [place] this morning and were told to come to the ER. Onset: Gradual Onset Date: 04/14/20 Duration: Day(s): (1), Waxing/Waning Location: Reports: Generalized Quality: Denies: Other (low grade fever is the concern) Severity: Mild Improves with: Reports: Medication Worsens with: Reports: Other (? time) Context: Reports: Other (See HPI) Associated Symptoms: Reports: Fever/Chills (low grade), Shortness of Breath (getting better) Treatments [employer]PER[employer]OR: Reports: Breathing Treatments, Other (see below) (percocet for pain relief after his surgery) Right Posterior Chest Pain Score (Numeric/FACES): 4 - Related Data Allergies Allergy/AdvReac Type Severity Reaction Status Date / Time No Known Allergies Allergy Verified 04/15/20 10:33 Home Meds: Home Meds Ondansetron [Ondansetron Odt] 4 mg PO ASDIRECTED 02/25/18 [History] Prochlorperazine [Compazine] 10 mg PO Q6H PRN 02/25/18 [History] Doxycycline [Vibra-Tabs] 100 mg PO Q12HR #14 tab 04/15/20 [Rx] Metoprolol Succinate 25 mg PO DAILY 04/15/20 [History] oxyCODONE 5 mg PO Q6H PRN 04/15/20 [History] Past Medical History Respiratory History: Reports: Other (See Below) Other Respiratory History: cancer mets from colon Gastrointestinal History: Reports: GERD Musculoskeletal History: Reports: Arthritis, Back Pain, Chronic, Other (See Below) Other Musculoskeletal History: left 5tht digit laceration 04/03/20 Psychiatric History: Reports: Anxiety Oncologic (Cancer) History: Reports: Colon Other Oncologic History: colon resection January 02 2018 - Infectious Disease History Infectious Disease History: Reports: Chicken Pox - Past Surgical History GI Surgical History: Reports: Appendectomy, Colon, Colonoscopy, EGD Musculoskeletal Surgical History: Reports: None Social & Family History - Caffeine Use Caffeine Use: Reports: Coffee Other Caffeine Use: one cup in am ED ROS GENERAL - Review of Systems Review Of Systems: See Below Constitutional: Reports: Fever (low grade), Malaise HEENT: Reports: No Symptoms Respiratory: Reports: Shortness of Breath (getting better), Cough, Sputum (green at times), Hemoptysis (post-op, now resolved) Cardiovascular: Reports: No Symptoms Endocrine: Reports: No Symptoms GI/Abdominal: Reports: No Symptoms : Reports: Other (urine is dark) Musculoskeletal: Reports: No Symptoms Skin: Reports: No Symptoms Neurological: Reports: No Symptoms ED EXAM, GENERAL - Physical Exam Exam: See Below Exam Limited By: No Limitations General Appearance: Alert, WD/WN, No Apparent Distress Eye Exam: Bilateral Eye: Normal Inspection Ears: Normal External Exam, Normal Canal, Hearing Grossly Normal, Normal TMs Ear Exam: Bilateral Ear: Auricle Normal, Canal Normal, TM normal Nose: Normal Inspection, No Blood Throat/Mouth: Normal Inspection, Normal Lips, Normal Oropharynx, Normal Voice, No Airway Compromise Head: Atraumatic, Normocephalic Neck: Normal Inspection Respiratory/Chest: No Respiratory Distress, No Accessory Muscle Use, Rhonchi (R base). No: Wheezing Cardiovascular: Regular Rate, Rhythm, No Edema Back Exam: Other (surgical scar R posterior chest) Extremities: Normal Inspection, Normal Range of Motion, Non-Tender, No Pedal Edema Neurological: Alert, Oriented, CN II-XII Intact, Normal Cognition, No Motor/Sensory Deficits Psychiatric: Normal Affect, Normal Mood Skin Exam: Warm, Dry, Intact, Normal Color, No Rash Course - Vital Signs Last Recorded V/S: Last Vital Signs Temp 37.0 C 04/15/20 11:25 Pulse 93 04/15/20 11:25 Resp 16 04/15/20 11:25 BP 133/75 04/15/20 11:25 Pulse Ox 95 04/15/20 11:25 - Orders/Labs/Meds Labs: Laboratory Tests 04/15/20 04/15/2020 Range/Units 10:38 10:38 10:38 WBC 7.4 (4.5-11.0) K/uL RBC 4.72 (4.30-5.90) M/uL Hgb 14.2 (12.0-15.0) g/dL Hct 43.8 (40.0-54.0) % MCV 93 (80-98) fL MCH 30 (27-31) pg MCHC 32 (32-36) % Plt Count 231 (150-400) K/uL Sodium 132 L (140-148) mmol/L Potassium 3.2 L (3.6-5.2) mmol/L Chloride 93 L (100-108) mmol/L Carbon Dioxide 28 (21-32) mmol/L Anion Gap 14.2 H (5.0-14.0) mmol/L BUN 15 (7-18) mg/dL Creatinine 1.3 (0.8-1.3) mg/dL Est Cr Clr Drug Dosing 82.53 mL/min Estimated GFR (MDRD) 58 L (>60) Glucose 116 H (74-106) mg/dL Calcium 8.3 L (8.5-10.1) mg/dL C-Reactive Protein 6.86 H (0.0-0.3) mg/dL Meds: Medications Discontinued Medications Generic Name Dose Route Start Last Admin Trade Name Freq PRN Reason Stop Dose Admin Potassium Chloride 40 meq 04/15/20 11:24 04/15/20 11:30 Potassium Chloride PO 04/15/20 11:25 40 meq ONETIME ONE Administration Departure - Departure Time of Disposition: 11:48 Disposition: Home, Self-Care 01 Condition: Fair Clinical Impression: Bronchitis, Hypokalemia - Discharge Information *PRESCRIPTION DRUG MONITORING PROGRAM REVIEWED*: No *COPY OF PRESCRIPTION DRUG MONITORING REPORT IN PATIENT VIKAS: No Prescriptions: Doxycycline [Vibra-Tabs] 100 mg PO Q12HR #14 tab Referrals: Mark Morley MD [Primary Care Provider] - Forms: ED Department Discharge Additional Instructions: Add doxycycline to your current medications. Recheck for increasing temp or shortness of breath. Eat a diet containing more potassium. Sepsis Event Note (ED) - Evaluation Sepsis Screening Result: Possible Sepsis Risk - Focused Exam Vital Signs: Vital Signs Temp Pulse Resp BP Pulse Ox 04/15/20 11:25 37.0 C 93 16 133/75 95 04/15/20 10:31 35.9 C L 108 H 16 138/84 94 L 04/15/20 10:00 35.9 C L 108 H 16 138/84 94 L
[2020-04-15] MEDS ORDERED: Potassium Chloride 10 MEQ Cap.ER PO ONE (11:24)
[2020-04-15 11:26] VITALS: BP 133/75; PULSE 93
== END 2020-04-15 11:58 | disposition home or self-care (01) ==
LOC: JP.ED 09:48
DX: J40 Bronchitis, not specified as acute or chronic (principal); E87.6 Hypokalemia
CPT/HCPCS: 36415; 80048; 85027; 86140; 99283; A9270